=== PATIENT | male | born 1995 | race African-American/Black ===

== ENCOUNTER 2019-08-12 07:39 | Emergency (ER) | payer SELFPAY ==
--- NOTE | 2019-08-12 08:23 | RAD ---
RADIOGRAPH RIGHT ANKLE 3 VIEWS: DATE: 08/12/2019. HISTORY: A 24-year-old male with acute traumatic injury to right ankle. FINDINGS: Ankle mortise is congruent. Talar dome is maintained. No fracture or subluxation. Pes planus. IMPRESSION: 1. No fracture. 2. Pes planus. 3. Otherwise, negative. POS: OFF
== END 2019-08-12 08:43 | disposition home or self-care (01) ==
LOC: ERS 07:39
DX: S93.401A Sprain of unspecified ligament of right ankle, initial encounter (principal); E11.9 Type 2 diabetes mellitus without complications; I10 Essential (primary) hypertension; X50.9XXA Other and unspecified overexertion or strenuous movements or postures, initial encounter; Y93.67 Activity, basketball